=== PATIENT | male | born 2005 | race African-American/Black ===

== ENCOUNTER 2024-01-30 12:12 | Emergency (ER) | payer MEDICAID, SELFPAY ==
[2024-01-30 12:13] VITALS: BP 138/70; PULSE 88; RESP 16; TEMP 36.6; O2SAT 99; BMI 25.1
--- NOTE | 2024-01-30 15:34 | EX.ED.DYSGE1 ---
HPI History of Present Illness Chief Complaint: Rash Narrative Narrative: 18-year-old male with rash to the face. He states he gets it in the early part of the year and it is itching. Has had it before. He states he was in [place] when he had it last and he was prescribed a cream but he does not know what that was. He showed me a picture of the was cetirizine and states this helped as well. He is currently on Zyrtec. The rash is also to the face. Denies any new soaps, creams, detergents etc. Is any fevers or chills. PFSH PFSH Medical History no medical history Home Medications cetirizine 10 mg tablet (Zyrtec) 10 mg PO DAILY #30 tabs 01/30/24 [Rx Last Taken Unknown] hydrocortisone 2.5 % topical cream 1 applic topical BID PRN rash #28 grams 01/30/24 [Rx Last Taken Unknown] Allergy/AdvReac Type Severity Reaction Status Date / Time almond Allergy Anaphylaxis Verified 01/30/24 12:17 Environmental Allergies: Allergy Rash Verified 01/30/24 12:17 Uncoded Surgical History no surgical history Social History Smoking Status: Never smoker ROS ROS ED Constitutional Constitutional ED: Denies chills, fever(s) or sweats Eyes Eyes: Denies blurry vision or change in vision ENT ENT ED: Denies ear pain or sore throat Cardiovascular Cardiovascular: Denies chest pain, palpitations or racing heartbeat Respiratory/Chest Respiratory/Chest: Denies cough, dyspnea or sputum Gastrointestinal Gastrointestinal: Denies abdominal pain, constipation, diarrhea, nausea or vomiting Genitourinary Genitourinary ED: Denies dysuria, hematuria or urinary frequency Musculoskeletal Musculoskeletal: Denies arthralgias, myalgias or neck pain Integumentary Reports rash; Denies abscess or Abrasions Neurologic Neurologic: Denies headache(s), paresthesias or weakness Psychiatric Psychiatric: Denies anxiety, depression, suicidal ideation or suicidal thoughts Endocrine Endocrinology: Denies polydipsia or polyuria EXAM Physical Exam Const Vital Signs: 01/30/24 12:13 Temperature 98 F Temperature Source Temporal Pulse Rate 88 Respiratory Rate 16 Blood Pressure 138/70 H Blood Pressure Mean 92 Pulse Ox 99 Oxygen Delivery Method Room Air Positive well nourished General Appearance ED: NAD HEENT Reports moist mucous membranes Eyes PERRL and EOMs intact bilaterally Chest Wall inspection of chest normal Resp normal respiratory effort Neuro oriented x3 and CN's II-XII intact bilaterally Psych mental status grossly normal Skin Skin Narrative: There is a nonspecific maculopapular rash noted to the cheeks, forehead, neck. Nontender. No crepitance. No pustules. Nondermatomal. MDM MDM MDM Narrative Medical decision making narrative: Patient with rash to the face. He states has had a before it is allergic in nature. Discussed with endocrine [facility] clinical including send workup tonight. Prescription for this. Also written for Zyrtec. Return precautions discussed. Impression: 1. dermatitis Discharge Plan Triage Chief Complaint: Rash ED Provider: Hank Guerra Dx/Rx/DC Orders Instructions: ED Contact Dermatitis Prescriptions: New hydrocortisone 2.5 % cream 1 applic topical BID PRN (Reason: rash) Qty: 28 0RF cetirizine [Zyrtec] 10 mg tablet 10 mg PO DAILY Qty: 30 0RF Primary Care Provider: Care Physician,No Primary Referrals: NOT,DEFINED [Non-Staff] - Disposition Disposition: Home, Self Care Discharge Date/Time: 01/30/24 15:32
== END 2024-01-30 15:32 | disposition home or self-care (01) ==
LOC: ED 15:29
PROVIDERS: Emergency Provider Student in an Organized Health Care Education/Training Program; Visit Provider Student in an Organized Health Care Education/Training Program
DX: L30.9 Dermatitis, unspecified (principal); Z79.899 Other long term (current) drug therapy
CPT/HCPCS: 99282